=== PATIENT | female | born 1945 | race Caucasian/White ===

== ENCOUNTER 2023-06-27 16:12 | Emergency (ER) | payer OTHER ==
[~2023-06-27] VITALS: Ht 167.6 cm; Wt 81.6 kg
[2023-06-27] MEDS ORDERED: GABAPENTIN300 MG PO (16:32)
== END 2023-06-27 19:35 | disposition home or self-care (01) ==
LOC: EDBD 16:13 → ER 16:13
DX: U07.1 COVID-19 (principal)